=== PATIENT | male | born 1960 | race Caucasian/White ===

== ENCOUNTER 2020-06-21 13:00 | Outpatient (RCR) | payer BC, SELFPAY ==
--- NOTE | 2020-06-07 13:01 | HP.PTEVAL_ITS ---
Patient's Visit Information KIERSTEN CARDENAS is a 59 year old M referred to Physical Therapy by LEELA Morales with a diagnosis of NECK PAIN. Date of Evaluation: 06/07/20 Physical Therapist: Katelyn Finley PT, Cert MDT - Visit Plan Frequency: 2-3x /Week Duration: 4-6 Weeks Plan: CONSIDER TX IF APPROPRIATE WITH FURTHER TESTINGUS, ESTIM, MH OR CP, POSTURE CORRECTION/STRENGTHENING, INSTRUCTION IN APPROPRIATE BODY MECHANICS AND ACTIVITY MODIFICATIONS. ELI UE ROM, STRETCHING AND STRENGTHENING. HEP INSTRUCTION. 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 Disability: NO. Present symptoms: LEFT NECK PAIN, LEFT ARM, FOREARM, HAND AND FINGER PAIN, NUMBESS AND TINGLING. I WOKE UP ONE MORNING WITH PAIN IN LEFT THUMB. I FORCED IT TO BEND AND SOMETHING SNAPPED. IT DISLOCATES AND NOW IT WON'T MOVE. LEFT THUMB PAIN STARTED ABOUT 2 MONTHS AGO. Present since: FOUR MONTHS. Pain Scale: Worst - 6/10 Least - 0/10. Currently: 12/02. Commenced as a result of: NO APPARENT REASON. Symptoms at onset: STIFF NECK. Worse: LYING DOWN, TWO PILLOWS VS ONE, ANY PHYSICAL ACTIVITY, CLEANING UNDERNEATH RIDING MOWER, TURNING HEAD. Better: IBUPORFEN, LYING FLAT ON BACK WITHOUT A P ILLOW. Disturbed sleep: YES. Previous history/Previous treatment: UNREMARKABLE. This episode: STEROID AWHILE AGO - WORKED GREAT 2ND DAY THEN BACK TO WHAT IT WAS. ON STEROID AGAIN NOW BECAUSE OF SINUS INFECTION AND IT IS HELPING. 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 WAS PRESCRIBED SOEMTHING FOR ARTHRITIS BUT HASN'T BEEN TAKING IT BECAUSE IT UPSETS HIS STOMACH - HAS NOT TOLD DOCTOR YET BUT PLANS TO TODAY WHEN THEY DISCUS X-RAYS. Dizziness: NO. Tinnitis: NO. Nausea: NO. Shortness of Breath: NO. Difficulty Swollowing: NO. Gait: NORMAL. Accidents: LEFT CLAVICLE FX 35 YEARS AGO IN [place]. Unexplained weight loss: NO. Imaging: RECENT NECK X-RAY IN [place] BUT PATIENT DOES NOT KNOW RESULTS. PMH/Recent major surgery: HIGH CHOLESTEROL, HIGH BLOOD PRESSURE. - Objective Sitting Posture/Standing Posture: POOR. FH. ROUNDED SHOULDERS LEFT > RIGHT. NO TORTICOLLIS. Other Observations: PATIENT IS PLEASANT AND COOPERATIVE TO WORK WITH. INDEP GAIT AND TRANSFERS. Motor deficit: ELI UE STRENGTH GROSSLY 5/5 WITH MMT'ING EXCEPT LEFT SHLD 4/5 AND TINGLING IN LUE AFTER TESTING. Sensory deficit: ELI UE LIGHT TOUCH SENSATION IS INTACT AND SYMMETRICAL WITH TESTING TODAY INCLUDING L THUMB. 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 ROM: ELI UE ROM WFL. Reflexes: ELI UE'S 2/3. Dural Signs: POSITIVE LEFT UE. Cervical Mvmt Loss: Flex: MIN - PRODUCES LEFT SHLD PAIN. Pro: NIL - PRODUCES LEFT SHLD PAIN. Ext: MOD - PRODUCES NECK AND L SHLD PAIN. Ret: HANK - PRODUCES LEFT SHLD PAIN AND LEFT FOREARM PAIN. RSB: HANK - L NECK AND SHLD PAIN. LSB: MOD - L NEKC AND SHLD PAIN. R Rot: MOD - L NECK AND SHLD PAIN. L Rot: HANK - L NECK AND SHLD PAIN. Postural strength: POOR. Palpation: NO ACUTE TENDERNESS WITH LIGHT PALPATION OF NECK, UPPER BACK AND SHLD REGIONS. TREATMENT: NEUROMUSCULAR REEDUCATION - RETRAINING OF MVMT AND POSTURE FOR SITTING, LYING AND STANDING A CTIVITIES. OTHER: GENTLE DISTRACTION OF NECK IN SITTING RESULTS IN INCREASED LEFT SHLD PAIN BRIEFLY. - Goals Goal 1:: DECREASE C/O NECK AND LEFT UE SX'S. Goal Time Frame: 4-6 Weeks Goal 2:: IMPROVE PERSONAL CARE, LIFTING, READING, SLEEP, DRIVING AND RECREATIONAL FUNCTION Goal Time Frame: 4-6 Weeks Goal 3:: INSTRUCT IN PROPHYLAXIS Goal Time Frame: 4-6 Weeks - Anticipated Interventions Patient/Client Instruction: Educate patient on: Condition, Plan of Care, Risk Factors, Benefits of Fitness Program For the Purpose of:: To improve self management Therapeutic Exercise to Include: Strength training, Body mechanics, Postural training, Flexibilty training, Neuromotor development, Scapular Strength/Stabilization For the Purpose of:: To decrease pain, To increase ROM, To improve muscle performance and motor function, To increase tolerance to activity/condition/position, To improve ability of physical actions for ho me/community/work/leisure Manual Therapy Techniques to Include: Mobilization For the Purpose of:: To decrease pain, To increase ROM, To improve nutrient delivery to tissue TENS: Yes IF ES: Yes Cryotherapy (ice pack, ice massage): Yes Thermo therapy (hot pack): Yes Ultrasound (thermal/non thermal): Yes Intermittent cervical traction: Yes - TRY MANUALLY FIRST For the Purpose of:: To decrease pain, To decrease swelling/inflammation, To improve nutrient delivery to tissue Thank you for the opportunity to evaluate your patient. For Medicare and Medicare HMO plans, please review the plan of care and approve it. It will need to be FAXED BACK to us at [phone] for Medicare purposes. For Medicare only, by signing this I certify the plan of care. Please let me know if there are questions or concerns regarding this plan of care. Physician Signature: Date:
--- NOTE | 2020-06-21 13:33 | HP.PTREVAL ---
Srinivasa Cotter, PLANT PRODUCTION MANAGER-C, It has been my pleasure to treat KIERSTEN CARDENAS over the last 6 visits for NECK PAIN. Please see the progress note below for an update on the physical therapy plan of care! Subjective: PATIENT REPORTS HE IS AT LEAST 70% BETTER AND WOULD LIKE TO TRY TO CONTINUE ON HIS OWN WITH HIS HEP AT THIS TIME. Objective/Function: PATIENT WAS SEEN TODAY FOR RE-ASSESSMENT OF PROGRESS TOWARD THE SET PT GOALS AND THE NEED FOR FURTHER PHYSICAL THERAPY VS READINESS FOR DISCHARGE. PATIENT IS APPROPRIATE FOR D/C TO [facility] AT THIS TIME. UPON EXAM TODAY: Motor deficit: ELI UE STRENGTH GROSSLY 5/5 WITH MMT'ING EXCEPT LEFT SHLD ABD 4/5 AND NO TINGLING IN LUE AFTER TESTING TODAY. Sensory deficit: ELI UE LIGHT TOUCH SENSATION IS INTACT AND SYMMETRICAL WITH TESTING TODAY INCLUDING L THUMB. 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 ROM: ELI UE ROM WFL. Dural Signs: NEGATIVE. Cervical Mvmt Loss: Flex: NIL. Pro: NIL. Ext: MOD. Ret: MOD. RSB: MOD. LSB: MOD. R Rot: MIN. L Rot: MOD. PATIENT DENIES NECK OR UE PAIN, NUMBNESS OR TINGLING WITH CERVICAL ROM TESTING ALL PLANES TODAY. Plan Plan: D/C TO [facility]. PATIENT AGREEABLE. Goals Goal 1:: DECREASE C/O NECK AND LEFT UE SX'S. Goal Time Frame: 4-6 Weeks Goal Progress: Goal Met Goal 2:: IMPROVE PERSONAL CARE, LIFTING, READING, SLEEP, DRIVING AND RECREATIONAL FUNCTION Goal Time Frame: 4-6 Weeks Goal Progress: Goal Met Goal 3:: INSTRUCT IN PROPHYLAXIS Goal Time Frame: 4-6 Weeks Goal Progress: Goal Met Anticipated Interventions Patient/Client Instruction: Educate patient on: Condition, Plan of Care, Risk Factors, Benefits of Fitness Program For the Purpose of:: To improve self management Therapeutic Exercise to Include: Strength training, Body mechanics, Postural training, Flexibilty training, Neuromotor development, Scapular Strength/Stabilization For the Purpose of:: To decrease pain, To increase ROM, To improve muscle performance and motor function, To increase tolerance to activity/condition/position, To improve ability of physical actions for home/community/work/leisure Manual Therapy Techniques to Include: Mobilization For the Purpose of:: To decrease pain, To increase ROM, To improve nutrient delivery to tissue TENS: Yes IF ES: Yes Cryotherapy (ice pack, ice massage): Yes Thermo therapy (hot pack): Yes Ultrasound (thermal/non thermal): Yes Intermittent cervical traction: Yes - TRY MANUALLY FIRST For the Purpose of:: To decrease pain, To decrease swelling/inflammation, To improve nutrient delivery to tissue Please do not hesitate to contact me at [phone] by phone or if you have questions or concerns regarding this new plan of care! Sincerely, Katelyn Finley, PT, Cert MDT
--- NOTE | 2020-09-24 17:21 | HP.PTDCSUM ---
It has been my pleasure to treat KIERSTEN CARDENAS referred by LEELA Morales, with the diagnosis of NECK PAIN for a total of 6 visit(s). Discharge Date: 06/21/20 Please see the following information for a summary of their discharge status. Subjective: PATIENT REPORTS HE IS AT LEAST 70% BETTER AND WOULD LIKE TO TRY TO CONTINUE ON HIS OWN WITH HIS HEP AT THIS TIME. NECK PAIN Pain Intensity (Out of 10): 0 LEFT UE Pain Intensity (Out of 10): 0 % Improvement: 70 Objective/Function: PATIENT WAS SEEN TODAY FOR RE-ASSESSMENT OF PROGRESS TOWARD THE SET PT GOALS AND THE NEED FOR FURTHER PHYSICAL THERAPY VS READINESS FOR DISCHARGE. PATIENT IS APPROPRIATE FOR D/C TO [facility] AT THIS TIME. UPON EXAM TODAY: Motor deficit: ELI UE STRENGTH GROSSLY 5/5 WITH MMT'ING EXCEPT LEFT SHLD ABD 4/5 AND NO TINGLING IN LUE AFTER TESTING TODAY. Sensory deficit: ELI UE LIGHT TOUCH SENSATION IS INTACT AND SYMMETRICAL WITH TESTING TODAY INCLUDING L THUMB. 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 ROM: ELI UE ROM WFL. Dural Signs: NEGATIVE. Cervical Mvmt Loss: Flex: NIL. Pro: NIL. Ext: MOD. Ret: MOD. RSB: MOD. LSB: MOD. R Rot: MIN. L Rot: MOD. PATIENT DENIES NECK OR UE PAIN, NUMBNESS OR TINGLING WITH CERVICAL ROM TESTING ALL PLANES TODAY. Goal 1:: DECREASE C/O NECK AND LEFT UE SX'S. Goal Progress: Goal Met Goal 2:: IMPROVE PERSONAL CARE, LIFTING, READING, SLEEP, DRIVING AND RECREATIONAL FUNCTION Goal Progress: Goal Met Goal 3:: INSTRUCT IN PROPHYLAXIS Goal Progress: Goal Met Plan: D/C TO [facility]. PATIENT AGREEABLE. If there are questions or concerns regarding this patient's physical therapy, please feel free to call me at [phone]. Thank you for the referral of this patient. Sincerely, Katelyn Finley, PT, Cert MDT
== END 2020-06-21 19:00 | disposition home or self-care (01) ==
LOC: PT 13:00
PROVIDERS: Referring Provider Nurse Practitioner Family; Visit Provider Nurse Practitioner Family
DX: M79.645 Pain in left finger(s) (principal); M25.512 Pain in left shoulder
CPT/HCPCS: 97035; 97110; 97162; 97164; 97530

== ENCOUNTER 2022-08-19 12:05 | Emergency (ER) | payer OTHER, SELFPAY ==
[2022-08-19 12:07] VITALS: BP 156/92; PULSE 76; RESP 14; TEMP 35.7; O2SAT 95; BMI 29.9
--- NOTE | 2022-08-19 12:50 | NURSING ---
NO OLD EKGS
--- NOTE | 2022-08-19 13:16 | EKG12_ITS ---
Test Reason : DIZZY Blood Pressure : / mmHG Vent. Rate : 072 BPM Atrial Rate : 072 BPM P-R Int : 142 ms QRS Dur : 100 ms QT Int : 390 ms P-R-T Axes : 009 033 065 degrees QTc Int : 427 ms Normal sinus rhythm Incomplete right bundle branch block Borderline ECG Confirmed by ADELINA MORRIS, ANNA ([id number]), science editor TAYLOR NAVA ([id number]) on 08/20/2022 9:09:58 AM Referred By: DONTAE Confirmed By:ANNA SAHU MD
--- NOTE | 2022-08-19 13:18 | NURSING ---
NO OLD EKGS
[2022-08-19 13:23] VITALS: BP 154/88; PULSE 79; RESP 16; O2SAT 98
--- NOTE | 2022-08-19 17:55 | EX.ED.DYSGE1 ---
HPI History of Present Illness Chief Complaint: Dizziness Informant: patient Narrative Narrative: Presents transient dizziness with movement of room 10:45 AM while at work. Lasted 15 minutes states was sweaty. There is no chest pains or shortness of breath. No recent upper respiratory symptoms. History of hypertension hyperlipidemia. States no headaches. Currently asymptomatic. Prior similar symptoms: No PFSH PFS Medical History High cholesterol Hypertension Home Medications atorvastatin 10 mg tablet 10 mg PO DAILY 08/19/22 [History Last Taken Unknown] loratadine 10 mg tablet 10 mg PO DAILY 08/19/22 [History Last Taken Unknown] losartan 50 mg tablet 50 mg PO DAILY 08/19/22 [History Last Taken Unknown] meclizine 25 mg tablet 25 mg PO TID PRN dizziness #20 tabs 08/19/22 [Rx Last Taken Unknown] Allergy/AdvReac Type Severity Reaction Status Date / Time No Known Allergies Allergy Verified 08/19/22 12:06 Social History Smoking Status: Current every day smoker tobacco type: cigarettes ROS ROS ED Constitutional Constitutional ED: Denies chills, fever(s) or sweats Eyes Eyes: Denies change in vision ENT ENT ED: Denies dysphagia or sore throat Cardiovascular Cardiovascular: Denies chest pain, leg edema, palpitations or racing heartbeat Respiratory/Chest Respiratory/Chest: Denies cough, dyspnea or dyspnea on exertion Gastrointestinal Gastrointestinal: Denies abdominal pain, diarrhea, nausea or vomiting Genitourinary Genitourinary ED: Denies dysuria, hematuria or urinary frequency Musculoskeletal Musculoskeletal: Denies back pain, extremity pain or neck pain Integumentary Denies rash or wounds Neurologic Neurologic: Reports other Details: Dizziness ; Denies headache(s), paresthesias or weakness EXAM Physical Exam Const Vital Signs: 08/19/22 12:07 08/19/22 12:42 08/19/22 13:23 Temperature 96.3 F L Temperature Source Temporal Pulse Rate 76 79 Respiratory Rate 14 16 Respiratory Effort Normal Non-Labored Respiratory Pattern Normal Blood Pressure 156/92 H 154/88 H Blood Pressure Mean 113 Pulse Ox 95 98 Oxygen Delivery Method Room Air Positive well nourished and well developed General Appearance ED: well developed and NAD HEENT Reports moist mucous membranes normocephalic and atraumatic Eyes PERRL, EOMs intact bilaterally and conjunctivae normal General Eye ED: Yes normal appearance of both eyes Neck no lymphadenopathy and supple General: Negative for tenderness Chest Wall Chest: Negative for tenderness Resp normal respiratory effort and normal air movement Effort and Inspection: symmetric chest movement; Negative for respiratory distress Cardio regular rate, regular rhythm and no murmurs Peripheral Pulses: pulses 2+ throughout GI normal to inspection, nondistended, normoactive bowel sounds and non-tender Palpation: Negative for guarding or rebound tenderness present Back/Spine no CVA tenderness and no thoracic nor lumbar tenderness Extremity normal to inspection General Extremety ED: Negative for edema or tenderness General Extremity: Negative for edema Neuro oriented x3, CN's II-XII intact bilaterally and no sensory deficits noted Neuro Narrative: NIH 0. Normal upper and lower cerebellar testing. Patient ambulated with no return of symptoms. Daniel-Hallpike was negative bilaterally. Sensorium / Orientation: awake and alert Skin no rashes or lesions noted and no wounds MDM MDM MDM Narrative Medical decision making narrative: Patient currently asymptomatic he is concerned for cardiac EKG was normal he had no chest pains. Discussed vertigo symptoms. He has no focal deficits I offered CT scan for imaging however he declines at this time with more concerning symptoms from potential heart. He is ambulate with no return of symptoms. Discussed monitoring symptoms prescription for meclizine and strict return precautions otherwise follow-up with his PCP. All questions were answered. EKG Initial EKG: Attestation: I personally reviewed and interpreted this EKG as follows: Comments: Sinus rate of 72, no ST or T wave changes. Discharge Plan Triage Chief Complaint: Dizziness ED Provider: Terrell Soto Dx/Rx/DC Orders Clinical Impression: Vertigo, History of hypertension, Hx of hyperlipidemia Instructions: ED Vertigo, Unspecified Prescriptions: New meclizine 25 mg tablet 25 mg PO TID PRN (Reason: dizziness) Qty: 20 0RF No Action losartan 50 mg Tablet 50 mg PO DAILY atorvastatin 10 mg Tablet 10 mg PO DAILY loratadine 10 mg Tablet 10 mg PO DAILY Primary Care Provider: Srinivasa Ortiz Referrals: Skyler Espinosa MD [Non-Staff] - 1 Week Disposition Disposition: Home, Self Care Discharge Date/Time: 08/19/22 13:27
== END 2022-08-19 13:27 | disposition home or self-care (01) ==
LOC: ED 13:27
PROVIDERS: Emergency Provider Emergency Medicine; Visit Provider Emergency Medicine
DX: R42 Dizziness and giddiness (principal); I10 Essential (primary) hypertension; F17.210 Nicotine dependence, cigarettes, uncomplicated; E78.00 Pure hypercholesterolemia, unspecified; E78.5 Hyperlipidemia, unspecified
CPT/HCPCS: 93005; 99283; A4216

== ENCOUNTER → 2024-12-06 | Outpatient (CLI) | payer OTHER, SELFPAY ==
[2024-12-06 10:32] LABS: ALB/GLOB Ratio 0.9 RATIO (0.9-2.4); AST(SGOT) 19 U/L (15-37); Alanine Aminotransfer ALT/SGPT 25 U/L (16-61); Albumin, Serum 3.4 g/dL (3.2-5.0); Alkaline Phosphatase 146 U/L (45-117); Anion Gap 6 (5-15); BUN 11 mg/dL (7-18); BUN/Creat Ratio 11.9 RATIO (10-20); Chloride 107 mmol/L (98-107); Creatinine, Serum 0.92 mg/dL (0.70-1.30); EST Glomerular Filtration Rate 88 mL/min (>60); Est Glom Filt Rate - Afr Amer 107 mL/min (>60); Globulin 3.6 g/dL (2.2-4.2); Glucose 107 mg/dL (74-106); Sodium Level 137 mmol/L (136-145)
[2024-12-06 10:56] LABS: Microalbumin,Random Urine 20.4 mg/L (NO RANGE EST.); Microalbumin:Creatinine Ratio 16.1 mg/g CRE (<30 mg/g CRE)
== END | disposition home or self-care (01) ==
PROVIDERS: PCP Nurse Practitioner Family; Referring Provider Nurse Practitioner Family; Visit Provider Nurse Practitioner Family
DX: I10 Essential (primary) hypertension (principal); E78.5 Hyperlipidemia, unspecified; R73.01 Impaired fasting glucose; K62.5 Hemorrhage of anus and rectum

== ENCOUNTER → 2025-01-04 | Outpatient (CLI) | payer OTHER, SELFPAY ==
[2025-01-04 18:30] LABS: CRP 6.87 mg/L (0.0-3.0)
[2025-01-06 14:08] LABS: Endomysial Antibody IgA Negative (Negative); Immunoglobulin A 276 mg/dL (61-437); t-Transglutaminase IgA <2 U/mL (0-3)
== END | disposition home or self-care (01) ==
LOC: MTLAB 13:59
PROVIDERS: PCP Nurse Practitioner Family; Referring Provider Internal Medicine Gastroenterology; Visit Provider Internal Medicine Gastroenterology
DX: R19.7 Diarrhea, unspecified (principal)
CPT/HCPCS: 36415; 82784; 83516; 86140; 86255

== ENCOUNTER → 2025-01-05 | Outpatient (CLI) | payer OTHER, SELFPAY ==
[2025-01-08 02:06] LABS: Calprotectin, Stool 1540 ug/g (0-120)
== END | disposition home or self-care (01) ==
LOC: MTLAB 07:09
PROVIDERS: PCP Nurse Practitioner Family; Referring Provider Internal Medicine Gastroenterology; Visit Provider Internal Medicine Gastroenterology
DX: R19.7 Diarrhea, unspecified (principal)
CPT/HCPCS: 83993; 87493

== ENCOUNTER → 2025-01-27 | Outpatient (CLI) | payer OTHER, SELFPAY ==
--- NOTE | 2025-01-27 07:50 | RAD_ITS ---
PROCEDURE: SMALL BOWEL SERIES ONLY REASON FOR EXAM: Noninfective gastroenteritis and colitis. Chronic diarrhea. TECHNIQUE: FLUOROSCOPIC TIME: 117.5 mGy. 23 seconds of fluoroscopy. FLUOROGRAPHIC IMAGES: 9 COMPARISON: None. 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 There is evidence of mild thickening of the haustral pattern of the transverse colon. The patient ingested barium. A small bowel follow-through examination was then performed. Small bowel pattern is unremarkable. Contrast is seen within the colon at 120 minutes. No significant abnormality is seen. RAD/Small Bowel Series Only IMPRESSION: No significant abnormality is seen. Reading Location: [facility]
== END | disposition home or self-care (01) ==
LOC: RAD 07:47
PROVIDERS: PCP Nurse Practitioner Family; Referring Provider Internal Medicine Gastroenterology; Visit Provider Internal Medicine Gastroenterology
DX: K52.9 Noninfective gastroenteritis and colitis, unspecified (principal)
CPT/HCPCS: 74250

== ENCOUNTER → 2025-04-06 | Outpatient (CLI) | payer OTHER, SELFPAY ==
--- NOTE | 2025-04-06 16:29 | CT_ITS ---
PROCEDURE: ABDOMEN/PELVIS WITH CONTRAST 04/06/2025 REASON FOR EXAM: DIARRHEA,ABD PAIN TECHNIQUE: Abdomen and pelvis CT with intravenous contrast. Coronal and Sagittal reconstruction series were provided. PATIENT PREPARATION: Per protocol ORAL CONTRAST TYPE: None. CONTRAST: Isovue-300 VOLUME: 100 mL One or more dose reduction techniques were used (e.g., Automated exposure control, adjustment of the mA and/or kV according to patient size, use of iterative reconstruction technique. RADIATION DOSE SUMMARY: CTDlvol: 16.6 mGy DLP: 1662.93 mGycm COMPARISON: None FINDINGS: Lung bases: Minimal basilar atelectasis. Coronary artery calcification. Liver: Scattered tiny hepatic cysts. Fatty infiltration of the liver. Mild hepatomegaly. Gallbladder: The gallbladder is contracted. Spleen: Normal size. Pancreas: Normal size without evidence of mass surrounding inflammation or ductal dilation. Adrenals: Unremarkable Kidneys: Unremarkable Bladder: Unremarkable. Central prostatic calcification. Bowel: Colonic diverticulosis without diverticulitis. Appendix: Unremarkable Lymph nodes: Unremarkable. Vasculature: Mild diffuse atherosclerotic calcifications are noted. Peritoneum / Retroperitoneum: Tiny umbilical hernia containing fat. Bones: Degenerative changes of the spine. CT/Abdomen/Pelvis WITH Contrast IMPRESSION: Mild hepatomegaly and fatty infiltration of the liver. Sigmoid diverticulosis. Reading Location: [facility]
== END | disposition home or self-care (01) ==
PROVIDERS: PCP Nurse Practitioner Family; Referring Provider Internal Medicine Gastroenterology; Visit Provider Internal Medicine Gastroenterology
DX: R19.7 Diarrhea, unspecified (principal); R10.9 Unspecified abdominal pain; R63.4 Abnormal weight loss
CPT/HCPCS: 74177; Q9967; A4216